=== PATIENT | female | born 1995 | race Caucasian/White ===

== ENCOUNTER 2017-01-20 19:56 | Emergency (ER) | payer BC, MEDICAID ==
[~2017-01-20] VITALS: Ht 175.3 cm; Wt 91.8 kg
[~2017-01-20 19:56] MED LIST: IBP200T PO; TRAM-25 PO
--- OUTSIDE RECORDS SUMMARY | 2017-01-20 20:03 | XMS REPORT | Continuity of Care Document ---
Author Author [facility] Address Unknown Phone Unavailable Allergies Active Description Code Type Severity Reaction Onset Reported/Identified Relationship to Patient Clinical Status Yes No Known Drug Allergies [id number] Drug Allergy Unknown N/ A 08/30/2014 Medications Problems Date Dx Coded Attending Type Code Diagnosis Diagnosed By 08/30/2014 LUTHER BURGESS APRN Ot 729.5 08/30/2014 MARIAN WELLER DO Ot 724.2 LUMBAGO 08/30/2014 MARIAN WELLER DO Ot 922.32 BUTTOCK CONTUSION 08/30/2014 MARIAN WELLER DO Ot E849.0 ACCIDENT IN HOME 08/30/2014 MARIAN WELLER DO Ot E884.9 FALL-1 LEVEL TO OTH NEC 01/20/2017 LUTHER BURGESS APRN Ot 729.5 PAIN IN LIMB Procedures Results Encounters ACCT No. Visit Date/Time Discharge Status Pt. Type Provider Facility Loc./Unit Complaint [id number] 08/30/2014 21:04:00 2014 23:07:00 DIS Emergency NITHIN MARIAN COLON [facility] ED [id number] 06/12/2014 16:47:00 2013 23:59:59 CLS Outpatient LUTHER BURGESS [facility] RAD [id number] 01/20/2017 19:58:00 ACT Emergency TAMARA LEBRON, [facility] ED
--- OUTSIDE RECORDS SUMMARY | 2017-01-20 20:03 | XMS REPORT | Continuity of Care Document ---
Author Author [facility] Address Unknown Phone Unavailable Allergies Active Description Code Type Severity Reaction Onset Reported/Identified Relationship to Patient Clinical Status Yes No Known Drug Allergies [id number] Drug Allergy Unknown N/ A 08/30/2014 Medications [...] Status Pt. Type Provider Facility Loc./Unit Complaint [id number] 08/30/2014 21:04:00 2014 23:07:00 DIS Emergency NITHIN MARIAN COLON [facility] ED [id number] 06/12/2014 16:47:00 2013 23:59:59 CLS Outpatient LUTHER BURGESS [facility] RAD [id number] 01/20/2017 19:58:00 ACT Emergency TAMARA LEBRON, [facility] ED
--- NOTE | 2017-01-20 20:20 | NUR ---
Pt presents with right hand injury. Reports injury occurred at work at 1000 this morning, felt a numbness and tingling. Pain is at 8/10 now, describes pain as stinging. Pt reports moving hand and fingers hurts more. No other concerns presented. Pt's grandmother present with patient. Pt admitted to ER room 4.
[2017-01-20] MEDS ORDERED: ACETAMINOPHEN 500 MG TAB (TYLENOL) PO ONE (20:40)
--- NOTE | 2017-01-20 21:12 | Diagnostic Imaging Report ---
Indication: Right wrist injury with pain. Discussion: Three views of the right wrist were obtained, no comparison. No acute fracture, dislocation, or other osseous abnormality identified. No significant degenerative disease. Alignment is anatomic. Soft tissues are unremarkable. Impression: 1. Negative right wrist. Dictated by: Dictated on workstation # [id number]
[2017-01-20] MEDS ORDERED: ED- HYDROcodone/ACETAMINOPHEN 5MG/325MG (NORCO) 6 TABLETS/BTL PO ONE (21:20)
--- NOTE | 2017-01-20 21:33 | NUR ---
Pt dismissed to home with instructions, prepack of [place] and work excuse for splint. Pt stated her understanding. Denied other needs or concerns. Pt left ambulatory to [facility] with grandmother.
[2017-01-20 21:35] VITALS: BP 115/59
== END 2017-01-20 21:33 | disposition home or self-care (01) ==
LOC: ED 19:58
DX: M25.531 Pain in right wrist (principal); M25.431 Effusion, right wrist
CPT/HCPCS: 73110; 99283; L3908